=== PATIENT | male | born 1965 | race Caucasian/White ===

== ENCOUNTER 2022-12-11 19:51 | Inpatient (IN) | payer OTHER ==
[~2022-12-11] VITALS: Ht 182.9 cm; Wt 81.6 kg
[2022-12-11] MEDS ORDERED: ONDANSETRON HCL/PF 4 MG/2 ML VIAL ONE (20:29)
[2022-12-11] MEDS ORDERED: ONDANSETRON HCL/PF 4 MG/2 ML VIAL IVP ONE (20:30)
[2022-12-11] MEDS ORDERED: IV NS 0.9% 1,000 ML BAG IV ONE (20:30)
[2022-12-11 20:48] LABS: BASOPHILS # (AUTO) 0.1 K/uL (0.0-0.2); BASOPHILS % (AUTO) 0.9 % (0.0-2.0); EOSINOPHILS % (AUTO) 3.1 % (0.0-6.0); HEMATOCRIT 47 % (39-51); HEMOGLOBIN 15.4 g/dL (13.5-17.5); LYMPHOCYTES # (AUTO) 2.6 K/uL (0.8-4.8); LYMPHOCYTES % (AUTO) 35.1 % (20.0-44.0); MEAN CORPUSCULAR HGB CONC 33 g/dl (31.0-36.0); MEAN CORPUSCULAR VOLUME 93 fL (80-96); MONOCYTES # (AUTO) 0.9 K/uL (0.1-1.30); MONOCYTES % (AUTO) 11.8 % (2.0-12.0); NEUTROPHILS # (AUTO) 3.6 K/uL (1.8-8.9); NEUTROPHILS % (AUTO) 49.1 % (43.0-81.0); PLATELET COUNT (AUTO) 221 K/uL (150-450); RED BLOOD CELL COUNT(AUTO) 5.02 MIL/uL (4.5-6.0); WHITE BLOOD COUNT (AUTO) 7.4 K/uL (4.3-11.0)
[2022-12-11 21:04] LABS: CALCIUM, SERUM 9.1 mg/dL (8.5-10.1); CARBON DIOXIDE 26 mmol/L (21-32); CHLORIDE 104 mmol/L (98-107); CREATININE 1.1 mg/dL (0.6-1.3); GLUCOSE 137 mg/dL (74-106); POTASSIUM 3.9 mmol/L (3.5-5.1); SODIUM SERUM 138 mmol/L (136-145); UREA NITROGEN, BLOOD 13 mg/dL (7-18)
[2022-12-11 21:06] LABS: SERUM AMMONIA 20 umol/L (11-32)
[2022-12-11 21:10] LABS: ALANINE AMINOTRANSFERASE 44 U/L (12-78); ALBUMIN 3.8 g/dL (3.4-5.0); ALKALINE PHOSPHATASE 77 U/L (46-116); ASPARTATE AMINOTRANSFERASE 29 U/L (15-37); BILIRUBIN,DIRECT 0.1 mg/dL (0.0-0.2); BILIRUBIN,TOTAL 0.5 mg/dL (0.2-1.0); TOTAL PROTEIN, SERUM 7.5 g/dL (6.4-8.2)
[2022-12-11 21:11] LABS: ALCOHOL, BLOOD < 10 mg/dL (0-10)
[2022-12-11 21:21] LABS: BILIRUBIN,URINE NEGATIVE (NEGATIVE); COLOR,URINE YELLOW (YELLOW); LEUKOCYTE ESTERASE ,URINE NEGATIVE (NEGATIVE); NITRITE, URINE NEGATIVE (NEGATIVE); PROTEIN,URINE NEGATIVE (NEGATIVE); UGLUCOSE NEGATIVE (NEGATIVE); UROBILINOGEN,URINE 0.2 EU/dL (0.2)
[2022-12-11 22:19] LABS: BACTERIA,URINE None seen /HPF (None Seen); MUCUS,URINE Few /LPF (None Seen); RBC,URINE 0-2 /HPF (0-2); SQUAMOUS EPITHELIAL CELL,UR 0-2 /HPF (None Seen); WBC,URINE 0-2 /HPF (0-3)
[2022-12-11] MEDS ORDERED: ASPIRIN 325 MG TABLET ONE (22:39)
[2022-12-11] MEDS ORDERED: hydrALAZINE HCL IV 20 MG VIAL IV PRN (23:00)
[2022-12-11] MEDS ORDERED: ASPIRIN 325 MG TABLET PO ONE (23:00)
[2022-12-11] MEDS: ENOXAPARIN SODIUM 40 MG/0.4 ML DISP.SYRIN SQ SCH (23:50)
[2022-12-12] VITALS: BP 144/81
[2022-12-12 04:00] VITALS: BP 114/54
[2022-12-12 05:46] LABS: BASOPHILS % (AUTO) 0.7 % (0.0-2.0); HEMATOCRIT 44 % (39-51); HEMOGLOBIN 14.2 g/dL (13.5-17.5); LYMPHOCYTES # (AUTO) 2.5 K/uL (0.8-4.8); LYMPHOCYTES % (AUTO) 39.8 % (20.0-44.0); MEAN CORPUSCULAR HGB CONC 33 g/dl (31.0-36.0); MEAN CORPUSCULAR VOLUME 94 fL (80-96); MONOCYTES # (AUTO) 0.7 K/uL (0.1-1.30); NEUTROPHILS # (AUTO) 2.8 K/uL (1.8-8.9); NEUTROPHILS % (AUTO) 44.5 % (43.0-81.0); PLATELET COUNT (AUTO) 182 K/uL (150-450); RED BLOOD CELL COUNT(AUTO) 4.65 MIL/uL (4.5-6.0); WHITE BLOOD COUNT (AUTO) 6.2 K/uL (4.3-11.0)
[2022-12-12 06:04] LABS: CALCIUM, SERUM 8.7 mg/dL (8.5-10.1); POTASSIUM 3.9 mmol/L (3.5-5.1)
[2022-12-12] MEDS ORDERED: IV NS 0.9% 250 ML IV ONE (07:48)
[2022-12-12] MEDS ORDERED: IOHEXOL-350 100 ML VIAL IV ONE (07:48)
[2022-12-12] MEDS ORDERED: CT SWABBABLE VALVE TRANS SET 1 EA INFUS.SET MC ONE (07:48)
[2022-12-12 08:00] VITALS: BP 136/85
[2022-12-12] MEDS ORDERED: PANTOPRAZOLE 40 MG VIAL IV SCH (09:00)
[2022-12-12] MEDS: ASPIRIN 81 MG TAB.CHEW PO SCH (09:14)
[2022-12-12] MEDS: ATORVASTATIN 40 MG TABLET PO SCH (09:15)
[2022-12-12 12:00] VITALS: BP 121/71
[2022-12-12 16:00] VITALS: BP 125/60
[2022-12-12 20:00] VITALS: BP 131/71
[2022-12-12] MEDS ORDERED: SIMVASTATIN 20 MG TABLET PO SCH (22:00)
[2022-12-12] MEDS: ENOXAPARIN SODIUM 40 MG/0.4 ML DISP.SYRIN SQ SCH (22:58)
[2022-12-13] VITALS: BP 110/53
[2022-12-13 04:00] VITALS: BP 113/76
[2022-12-13 08:00] VITALS: BP 147/87
[2022-12-13] MEDS ORDERED: IOHEXOL-350 100 ML VIAL IV ONE (09:48)
[2022-12-13] MEDS: ATORVASTATIN 40 MG TABLET PO SCH (10:03)
[2022-12-13] MEDS: PANTOPRAZOLE 40 MG TABLET.DR PO SCH (10:03)
[2022-12-13] MEDS: ASPIRIN 81 MG TAB.CHEW PO SCH (10:03)
[2022-12-13 12:00] VITALS: BP 131/86
[2022-12-13 16:00] VITALS: BP 143/74
[2022-12-13 20:24] VITALS: BP 133/78
[2022-12-13] MEDS: ENOXAPARIN SODIUM 40 MG/0.4 ML DISP.SYRIN SQ SCH (22:19)
[2022-12-14 00:56] VITALS: BP 133/78
[2022-12-14 04:53] VITALS: BP 127/73
[2022-12-14 08:00] VITALS: BP 135/83
[2022-12-14] MEDS: PANTOPRAZOLE 40 MG TABLET.DR PO SCH (10:02)
[2022-12-14] MEDS: ASPIRIN 81 MG TAB.CHEW PO SCH (10:02)
[2022-12-14] MEDS: ATORVASTATIN 40 MG TABLET PO SCH (10:02)
[2022-12-14] MEDS ORDERED: ASPI-1169 PO (10:44)
[2022-12-14] MEDS ORDERED: ATOR40TA PO (10:44)
[2022-12-14] MEDS ORDERED: TRAM50TA2 PO (10:44)
[2022-12-14] MEDS ORDERED: LIDO700A30 TP (10:44)
== END 2022-12-14 14:00 | disposition home or self-care (01) | DRG 66 ==
LOC: ER 19:58 → TELE1 22:50
PROVIDERS: ADMIT Nurse Practitioner Acute Care; ATTEND Nurse Practitioner Acute Care
DX: I63.542 Cerebral infarction due to unspecified occlusion or stenosis of left cerebellar artery (principal); R73.9 Hyperglycemia, unspecified; R94.6 Abnormal results of thyroid function studies; Z90.49 Acquired absence of other specified parts of digestive tract; Z98.1 Arthrodesis status; Z88.0 Allergy status to penicillin; Z82.3 Family history of stroke; I10 Essential (primary) hypertension; E87.5 Hyperkalemia; G47.30 Sleep apnea, unspecified; R29.6 Repeated falls; W01.0XXA Fall on same level from slipping, tripping and stumbling without subsequent striking against object, initial encounter; Y92.002 Bathroom of unspecified non-institutional (private) residence as the place of occurrence of the external cause; R29.700 NIHSS score 0
CPT/HCPCS: 36415; 70450-TC; 70496-TC; 70498-TC; 70551-TC; 71100-TC; 72131-TC; 80048-TC; 80061-TC; 80076-TC; 81001; 82140-TC; 82962-TC; 84439-TC; 84443-TC; 84484-TC; 85025-TC; 85652-TC; 85730-TC; 92526; 92611-TC; 93307-TC; 93308-TC; 97112-TC; 97116-TC; 97530-TC; C9113; G0378; G0480; J1650; J2405; J7030; J7050; Q9967